=== PATIENT | male | born 1985 | race African-American/Black ===

== ENCOUNTER 2023-06-04 14:07 | Emergency (ER) | payer BC, OTHER ==
[~2023-06-04] VITALS: Ht 190.5 cm; Wt 133.8 kg
[2023-06-04] MEDS ORDERED: CEFTRIAXONE 500 MG VIAL IM ONE (14:30)
[2023-06-04] MEDS ORDERED: DOXYCYCLINE HYCLATE 100 MG TABLET PO ONE (14:30)
[2023-06-04] MEDS ORDERED: DOXY100T2 PO (14:36)
[2023-06-04] MEDS ORDERED: DOXYCYCLINE HYCLATE 100 MG TABLET ONE (14:44)
[2023-06-04] MEDS ORDERED: CEFTRIAXONE 500 MG VIAL ONE (14:45)
[2023-06-04 15:15] VITALS: BP 143/84; O2SAT 98
== END 2023-06-04 15:16 | disposition home or self-care (01) ==
LOC: ER 14:18
DX: N34.2 Other urethritis (principal)
CPT/HCPCS: 99283; 96372; J0696; A4663